=== PATIENT | male | born 1975 | race Caucasian/White ===

== ENCOUNTER 2023-09-03 02:20 | Emergency (ER) | payer BC ==
[~2023-09-03] VITALS: Ht 172.7 cm; Wt 99.8 kg
[~2023-09-03 02:20] MED LIST: EZET1TAB29 PO; FLUT50DI; SULF-261 PO
[2023-09-03 02:29] VITALS: BP_SYST 140; PULSE 96; RESP 18; TEMP 98.1; O2SAT 98
[2023-09-03 03:06] VITALS: BP_SYST 163; PULSE 100; RESP 20; TEMP 99.6; O2SAT 97
== END 2023-09-03 03:05 | disposition home or self-care (01) ==
LOC: SED 02:20
DX: B34.9 Viral infection, unspecified (principal); R50.9 Fever, unspecified; M79.10 Myalgia, unspecified site; R19.7 Diarrhea, unspecified; Z88.2 Allergy status to sulfonamides; Z79.899 Other long term (current) drug therapy
CPT/HCPCS: 99282

== ENCOUNTER 2023-09-13 20:28 | Emergency (ER) | payer BC ==
[~2023-09-13] VITALS: Ht 172.7 cm; Wt 99.8 kg
[2023-09-13 21:08] VITALS: BP_SYST 133; PULSE 136; RESP 20; TEMP 98.1; O2SAT 94
[2023-09-13 22:33] LABS: COVID19 ANTIGEN SOFIA FIA NEGATIVE (NEGATIVE); INFLUENZA TYPE A Negative (NEGATIVE); INFLUENZA TYPE B NEGATIVE (NEGATIVE)
[2023-09-13] MEDS ORDERED: AZITHROMYCIN 500 MG in NS 250 ML IV ONE (23:30)
[2023-09-13] MEDS ORDERED: cefTRIAXone 1 GM IVPB PREMIX 50 ML IV ONE (23:30)
[2023-09-13] MEDS ORDERED: NACL 0.9% 1,000 ML IV ONE (23:30)
[2023-09-14] MEDS ORDERED: AZITHROMYCIN 500 MG/VIAL (ZITHROMAX) IV ONE (00:30)
[2023-09-14 00:45] LABS: BASOPHILS # (AUTO) 0.1 K/uL (0.0-0.2); BASOPHILS % (AUTO) 0.9 % (0.0-2.0); EOSINOPHILS % (AUTO) 0.4 % (0.0-4.0); HEMOGLOBIN 11.7 g/dL (14.0-18.0); LYMPHOCYTES # (AUTO) 2.7 K/uL (1.0-5.5); LYMPHOCYTES % (AUTO) 43.8 % (20.5-51.5); MEAN CORPUSCULAR HEMOGLOBIN 26 pg (27-31); MEAN CORPUSCULAR HGB CONC 33 % (32-36); MEAN CORPUSCULAR VOLUME 81 fL (79.0-98.0); MONOCYTES # (AUTO) 0.5 K/uL (0.0-1.0); MONOCYTES % (AUTO) 7.9 % (1.7-9.3); NEUTROPHILS # (AUTO) 2.9 K/uL (1.8-7.7); PLATELET COUNT (AUTO) 233 K/uL (130-430); RED BLOOD CELL COUNT(AUTO) 4.47 MIL/uL (4.2-6.2); RED CELL DISTRIBUTION WIDTH 14.3 % (9.0-15.0); WHITE BLOOD COUNT (AUTO) 6.3 K/uL (4.8-10.8)
[2023-09-14 00:57] LABS: CALCIUM 8.1 mg/dL (8.4-11.0); CREATININE 0.89 mg/dL (0.55-1.30); POTASSIUM 3.2 mmol/L (3.5-5.1)
[2023-09-14 01:00] LABS: ALBUMIN 2.5 g/dL (3.4-4.8); TOTAL BILIRUBIN 0.5 mg/dL (0.0-1.0)
[2023-09-14] MEDS ORDERED: MED4 PO (02:34)
[2023-09-14] MEDS ORDERED: AUG875 PO (02:34)
[2023-09-14] MEDS ORDERED: LEVO750T64 PO (02:34)
[2023-09-14 11:24] LABS: TOTAL PROTEIN, SERUM 5.4 g/dL (6.4-8.3)
== END 2023-09-14 02:56 | disposition home or self-care (01) ==
LOC: SED 20:28
DX: R50.9 Fever, unspecified (principal); Z20.822 Contact with and (suspected) exposure to COVID-19; Z88.2 Allergy status to sulfonamides; Z88.8 Allergy status to other drugs, medicaments and biological substances
CPT/HCPCS: 99284; 96365; 71045; 87426; 80053; 85025; 87040; 36415; 83605; 87804 ×2; 96367; J0696; J7030; J0456